=== PATIENT | female | born 1975 | race American Indian/Alaskan Native ===

== ENCOUNTER 2018-06-25 17:40 | Emergency (ER) | payer OTHER ==
--- NOTE | 2018-06-25 18:00 | Emergency Department Report ---
Chief Complaint: Vaginal Bleeding Stated Complaint: 4WKS/SPOTTING Time Seen by Provider: 06/25/18 17:56 - HPI History of Present Illness: Pt is having vaginal spotting that began two days ago no abdominal pain, N/V, fever Pt states based on LNMP (may 23) she is 4 weeks 5 days she took an at home test, has not seen OB pt had an ectopic in 2005 with fallopian tube removal /P:2/A:3 VSS MSE complete MSE screening note: Focused history and physical exam performed. Due to findings the following was ordered: UA, hcg quant, ABO/Rh, transvaginal US ED Disposition for MSE Condition: Stable
[2018-06-25 18:46] LABS: Bilirubin,Urine NEG (Negative); Blood,Urine NEG (Negative); Color,Urine Yellow (Yellow); Protein,Urine <15 mg/dL mg/dL (Negative); Urobilinogen,Urine < 2.0 mg/dL (<2.0); WBC,Urine < 1.0 /HPF (0.0-6.0)
--- NOTE | 2018-06-25 21:10 | Ultrasound Report ---
PROCEDURE: US OB TRANSVAGINAL TECHNIQUE: Real-time transvaginal sonography in multiple planes of the pelvis was performed with lizbeth ge documentation. Grayscale, color flow Doppler imaging and velocity spectral waveform analysis of th e ovaries was employed (duplex imaging). HISTORY: vaginal spotting, pt states 4 weeks 5 days COMPARISONS: None FINDINGS: UTERUS Size: 9.9 x 4.5 x 7.1 cm. Endometrial thickness: 8.7 mm. Orientation: anteverted. Cervix: Normal. Fibroids/masses: There are 2 fibroids measuring 2.1 cm and 2.3 cm.. RIGHT Ovary: 1.9 x 1.5 x 2.1 cm. Appearance: Normal. Doppler images: Normal spectral waveforms and color flow images of the arterial inflow and venous out flow.. LEFT Ovary: 3.1 x 2.1 x 2.6 cm. Appearance: Normal. Doppler images: Normal spectral waveforms and color flow images of the arterial inflow and venous out flow... There is a left adnexal echogenic mass measuring 2.1 cm which could represent a dermoid. Pelvic fluid: None. IMPRESSION: There is no evidence of intrauterine or ectopic .. There are 2 fibroids measuring 2.1 cm and 2.3 cm.. There is a left adnexal echogenic mass measuring 2.1 cm which could represent a dermoid. There is no free fluid. This document is electronically signed by Sulaiman Grant MD., June 25 2018 09:07:42 PM ET
[2018-06-25 21:35] VITALS: BP 143/86
--- NOTE | 2018-06-25 22:05 | Emergency Department Report ---
ED HPI - General Chief complaint: Vaginal Bleeding Stated complaint: 4WKS/SPOTTING Time Seen by Provider: 06/25/18 17:56 Source: patient Mode of arrival: Ambulatory Limitations: No Limitations - History of Present Illness Initial comments: 42-year-old female presents to ED with complaints of and vaginal bleeding. Patient reports LMP 05/23/18. States she had a positive test at home. No OB at this time. The patient denies heavy bleeding with passage of clots or tissue. Patient denies abdominal pain or cramping. MD Complaint: vaginal bleeding -: days(s) (2) Location: pelvis Severity: mild Quality: other (painless) Consistency: intermittent Improves with: none Worsens with: none Associated symptoms: denies: abdominal pain Vaginal bleeding: light :: Yes Number of weeks : 4 Pre-amrik care: none - Related Data Home Medications Medication Instructions Recorded Confirmed Last Taken Losartan/Hydrochlorothiazide 1 tab PO QDAY 11/04/15 11/14/15 11/14/15 [Hyzaar 50-12.5 TAB] Previous Rx's Medication Instructions Recorded Last Taken Type Doxycycline [Vibramycin CAP] 100 mg PO Q12HR #14 capsule 11/15/15 Unknown Rx Ibuprofen [Motrin] 800 mg PO Q8HR PRN #30 tablet 11/15/15 Unknown Rx Methylergonovine [Methergine] 0.2 mg PO Q8HR #6 tablet 11/15/15 Unknown Rx Allergies Allergy/AdvReac Type Severity Reaction Status Date / Time No Known Allergies Allergy Verified 11/14/15 22:24 ED Review of Systems ROS: Stated complaint: 4WKS/SPOTTING Other details as noted in HPI Comment: All other systems reviewed and negative Gastrointestinal: denies: abdominal pain Genitourinary: other (reports vaginal spotting) ED Past Medical Hx - Past Medical History Hx Hypertension: Yes Hx Congestive Heart Failure: No Hx Diabetes: No Hx Asthma: No Hx COPD: No Hx HIV: No - Surgical History Hx Open Heart Surgery: No Hx Cholecystectomy: No Hx Appendectomy: No Hx Breast Surgery: No Additional Surgical History: ectopic surgery- RT - Social History Smoking Status: Never Smoker Substance Use Type: None - Medications Home Medications: Home Medications Medication Instructions Recorded Confirmed Last Taken Type Losartan/Hydrochlorothiazide 1 tab PO QDAY 11/04/15 11/14/15 11/14/15 History [Hyzaar 50-12.5 TAB] Doxycycline [Vibramycin CAP] 100 mg PO Q12HR #14 capsule 11/15/15 Unknown Rx Ibuprofen [Motrin] 800 mg PO Q8HR PRN #30 tablet 11/15/15 Unknown Rx Methylergonovine [Methergine] 0.2 mg PO Q8HR #6 tablet 11/15/15 Unknown Rx ED Physical Exam - General Limitations: No Limitations General appearance: alert, in no apparent distress - Head Head exam: Present: atraumatic, normocephalic - Eye Eye exam: Present: normal appearance - ENT ENT exam: Present: mucous membranes moist - Neck Neck exam: Present: normal inspection - Respiratory Respiratory exam: Present: normal lung sounds bilaterally. Absent: respiratory distress - Cardiovascular Cardiovascular Exam: Present: regular rate, normal rhythm - GI/Abdominal GI/Abdominal exam: Present: soft. Absent: distended, tenderness - Extremities Exam Extremities exam: Present: normal inspection - Neurological Exam Neurological exam: Present: alert, oriented X3 - Psychiatric Psychiatric exam: Present: normal affect, normal mood - Skin Skin exam: Present: warm, dry, intact, normal color ED Course Vital Signs 06/25/18 06/25/18 17:56 21:33 Temperature 98 F Pulse Rate 92 H 97 H Respiratory 16 16 Rate Blood Pressure 156/99 Blood Pressure 143/86 [Left] O2 Sat by Pulse 99 99 Oximetry ED Medical Decision Making - Radiology Data Radiology results: report reviewed - Medical Decision Making 42-year-old female with recent positive test at home, vaginal spotting times one day. HCG level currently 133, no identified IUP on ultrasound. Likely too early to see, given low hCG level. Patient having no abdominal cramping at this time. Advised to return to ED in 48 hours for repeat hCG and ultrasound. Threatened AB versus ectopic. - Differential Diagnosis threatened AB, spntaneous AB, ectopic AB Critical care attestation.: If time is entered above; I have spent that time in minutes in the direct care of this critically ill patient, excluding procedure time. ED Disposition Clinical Impression: Threatened in first trimester Disposition: DC-01 TO HOME OR SELFCARE Is pt being admited?: No Condition: Stable Instructions: Ectopic (ED), Threatened Miscarriage (ED) Additional Instructions: Please return in 48 hrs for repeat hormone level and US. Today your hormone level is 133. Referrals: [facility] [Provider Group] - 3-5 Days Time of Disposition: 22:05
== END 2018-06-25 22:18 | disposition home or self-care (01) ==
LOC: ED 17:40
DX: O20.0 Threatened abortion (principal); I10 Essential (primary) hypertension; Z3A.01 Less than 8 weeks gestation of pregnancy
CPT/HCPCS: 36415; 76817; 81001; 84702; 86850; 86870; 86900; 86901; 99284